=== PATIENT | female | born 1990 | race Caucasian/White ===

== ENCOUNTER 2022-09-12 07:58 | Outpatient (CLI) | payer OTHER, SELFPAY ==
--- NOTE | 2022-09-12 08:15 | CRLHL7_ITS ---
For Patients: As a result of the Cures Act, medical imaging exams and procedure reports are released immediately into your electronic medical record. You may view this report before your referring provider. If you have questions, please contact your health care provider. INDICATION: First trimester scan, establish dates. COMPARISON: None. TECHNIQUE: Real-time garcia-scale imaging of the pelvis was performed. FINDINGS: Sonographic imaging demonstrates a single living intrauterine gestation. The embryo demonstrates a regular cardiac rate measuring 176 beats per minute. The embryo`s crown-rump length measurement of 2.4 cm corresponds to a gestational age of 9 weeks 1 day with a sonographic due date of 04/16/2023. There is a normal-appearing yolk sac. There are no gross abnormalities noted within the embryo at this early state of development. The gestational sac has a normal appearance. There is no evidence of a perigestational hemorrhage. The amount of fluid within the sac appears appropriate for gestational age. The cervix is closed. The myometrium appears normal. The ovaries are of normal size. Corpus luteal cyst left ovary. There are no suspicious fluid collections noted in the cul-de-sac. IMPRESSION: Normal first trimester OB ultrasound exam. Gestational age calculated at 9 weeks 1 day with a sonographic due date of 04/16/2023. Dictated by Zurdo Mantilla MD @ 09/12/2022 10:12:30 AM (Electronically Signed)
== END 2022-09-12 07:59 | disposition home or self-care (01) ==
LOC: US 07:59
PROVIDERS: Visit Provider Advanced Practice Midwife
DX: Z34.91 Encounter for supervision of normal pregnancy, unspecified, first trimester (principal); Z3A.09 9 weeks gestation of pregnancy
CPT/HCPCS: 76801

== ENCOUNTER 2022-09-12 09:57 | Outpatient (CLI) | payer OTHER, SELFPAY ==
[2022-09-12 15:56] LABS: Hepatitis B Surface Antigen* Negative (Negative)
[2022-09-12 16:01] LABS: HIV 1/2/P24 Combo Screen* Negative (Negative)
[2022-09-12 16:13] LABS: Hepatitis C Virus Antibody* Negative (Negative)
[2022-09-12 16:20] LABS: Chlamydia DNA Amplified* NOT DETECTED (No Detected); GC DNA Amplified* NOT DETECTED (No Detected)
[2022-09-13 23:55] LABS: Rapid Plasma Reagin (RPR) Non Reactive (Non Reactive)
[2022-09-14 04:53] LABS: Rubella Antibody IgG 41.9 IU/mL
== END 2022-09-12 09:58 | disposition home or self-care (01) ==
PROVIDERS: Visit Provider Advanced Practice Midwife
DX: Z34.91 Encounter for supervision of normal pregnancy, unspecified, first trimester (principal); Z3A.09 9 weeks gestation of pregnancy
CPT/HCPCS: 86592; 86703; 86762; 86787; 86803; 86850; 86900; 86901; 87086; 87340; 87491; 87591

== ENCOUNTER 2022-11-25 08:16 | Outpatient (CLI) | payer OTHER, SELFPAY ==
--- NOTE | 2022-11-25 08:15 | CRLHL7_ITS ---
For Patients: As a result of the Century Cures Act, medical imaging exams and procedure reports are released immediately into your electronic medical record. You may view this report before your referring provider. If you have questions, please contact your health care provider. INDICATION: Evaluate anatomy. COMPARISON: 09/12/2022 TECHNIQUE: Real time garcia scale imaging of the fetus was performed as well as color Doppler analysis of the umbilical vessels. FINDINGS: Sonographic imaging demonstrates a single living intrauterine gestation. Fetus demonstrates a regular cardiac rate of 144 beats per minute. Fetus has a variable position. The placenta lies anteriorly without evidence of placenta previa. The edge of the placenta is located 3.9 cm from the internal cervical os. Amniotic fluid volume appears normal. Single deepest vertical pocket: 5.7 cm. The cervix is closed and measures 5.3 cm in length. The composite ultrasound gestational age is calculated at 20 weeks 5 days with an estimated sonographic due date of 04/09/2023. The estimated weight is 393 grams which lies at the 93rd %. The following biometric measurements were obtained: Biparietal diameter: 4.8 cm/20 weeks 4 days 76th% Head circumference: 18.0 cm/20 weeks 3 days 64th% Abdominal circumference: 16.3 cm/21 weeks 3 days 85th% Femur length: 3.4 cm/20 weeks 5 days 69th% The HC/AC ratio measures: 1.11 range (1.06-1.25) On anatomic survey, there is a normal appearance of the cerebral ventricles, cavum septi pellucidi, cisterna magna and cerebellum. The nose, lips, and facial profile appear normal. The cervical, thoracic and lumbar spine are well visualized and appear normal. There is a normal four-chamber heart view and the left and right ventricular outflow tracts appear normal. The diaphragm and stomach appear normal. The kidneys and bladder also appear normal. There is a normal three-vessel cord and cord insertion site. The four extremities appear normal. IMPRESSION: Normal OB ultrasound exam with concordance of clinical and sonographic dating. No intrinsic abnormalities noted on anatomic survey. Dictated by Zurdo Mantilla MD @ 11/25/2022 9:46:36 AM (Electronically Signed)
== END 2022-11-25 08:17 | disposition home or self-care (01) ==
LOC: US 08:17
PROVIDERS: Visit Provider Advanced Practice Midwife
DX: Z34.92 Encounter for supervision of normal pregnancy, unspecified, second trimester (principal); Z3A.20 20 weeks gestation of pregnancy
CPT/HCPCS: 76805

== ENCOUNTER 2023-02-24 13:08 | Outpatient (CLI) | payer OTHER, SELFPAY ==
--- NOTE | 2023-02-24 13:00 | CRLHL7_ITS ---
For Patients: As a result of the Century Cures Act, medical imaging exams and procedure reports are released immediately into your electronic medical record. You may view this report before your referring provider. If you have questions, please contact your health care provider. INDICATION: Gestational diabetes, preeclampsia COMPARISON: 02/18/2023 TECHNIQUE: Real time garcia scale imaging of the fetus was performed. Without non-stress testing. FINDINGS: Sonographic imaging demonstrates a single living intrauterine gestation. Fetus demonstrates a regular cardiac rate of 132 beats per minute. Fetus has a colin breech position. The amniotic fluid volume appears increased and there is a single deepest pocket measurement of 7.6 cm. MEGAN 27.6 cm. The fetus was active and demonstrated normal breathing movements. There was normal flexion and extension of the trunk and extremities. IMPRESSION: Normal biophysical profile score of 8 out of 8. Polyhydramnios. Dictated by Zurdo Mantilla MD @ 02/24/2023 2:18:55 PM (Electronically Signed)
== END 2023-02-24 13:09 | disposition home or self-care (01) ==
LOC: US 13:08
PROVIDERS: Visit Provider Obstetrics & Gynecology
DX: O14.93 Unspecified pre-eclampsia, third trimester (principal); O24.419 Gestational diabetes mellitus in pregnancy, unspecified control
CPT/HCPCS: 76819

== ENCOUNTER 2023-02-27 09:00 | Outpatient (CLI) | payer OTHER, SELFPAY | END 2023-02-27 09:01 | disposition home or self-care (01) | LOC: NFLDREF 03-02 08:45 | PROVIDERS: Visit Provider Obstetrics & Gynecology | DX: O14.93 Unspecified pre-eclampsia, third trimester (principal); Z3A.33 33 weeks gestation of pregnancy | CPT/HCPCS: 82565; 82570; 84156; 84450; 84460; 84520; 84550 ==

== ENCOUNTER 2023-03-02 07:13 | Outpatient (CLI) | payer OTHER, SELFPAY ==
--- NOTE | 2023-03-02 07:15 | CRLHL7_ITS ---
For Patients: As a result of the Century Cures Act, medical imaging exams and procedure reports are released immediately into your electronic medical record. You may view this report before your referring provider. If you have questions, please contact your health care provider. INDICATION: 33 year-old female. Gestational diabetes mellitus. COMPARISON: February 24, 2023. TECHNIQUE: Real time garcia scale imaging of the fetus was performed. Without non-stress testing. FINDINGS: Sonographic imaging demonstrates a single living intrauterine gestation. Fetus demonstrates a regular cardiac rate of 152 beats per minute. Fetus has a vertex orientation with spine to the maternal left side. The amniotic fluid volume appears normal and there is a single deepest pocket measurement of 4.3 cm. The fetus was active. However breathing movements were not observed during the time course of the study. There was normal flexion and extension of the trunk and extremities. IMPRESSION: Biophysical profile score of 6 out of 8. Dictated by Zana Harper MD @ 03/02/2023 8:43:43 AM (Electronically Signed)
== END 2023-03-02 07:14 | disposition home or self-care (01) ==
LOC: US 07:14
PROVIDERS: Visit Provider Obstetrics & Gynecology
DX: O24.419 Gestational diabetes mellitus in pregnancy, unspecified control (principal)
CPT/HCPCS: 76819

== ENCOUNTER 2023-03-06 09:05 | Outpatient (CLI) | payer OTHER, SELFPAY | END 2023-03-06 09:06 | disposition home or self-care (01) | LOC: NFLDREF 11:15 | PROVIDERS: Visit Provider Obstetrics & Gynecology | DX: O09.299 Supervision of pregnancy with other poor reproductive or obstetric history, unspecified trimester (principal); O14.93 Unspecified pre-eclampsia, third trimester; Z3A.34 34 weeks gestation of pregnancy | CPT/HCPCS: 82565; 82570; 84156; 84450; 84460; 84520; 84550 ==

== ENCOUNTER 2023-03-10 09:09 | Outpatient (CLI) | payer OTHER, SELFPAY ==
--- NOTE | 2023-03-10 09:15 | CRLHL7_ITS ---
For Patients: As a result of the Century Cures Act, medical imaging exams and procedure reports are released immediately into your electronic medical record. You may view this report before your referring provider. If you have questions, please contact your health care provider. INDICATION: pre-eclampsia COMPARISON: 03/02/2023 TECHNIQUE: Real time garcia scale imaging of the fetus was performed. Without non-stress testing. FINDINGS: Sonographic imaging demonstrates a single living intrauterine gestation. Fetus demonstrates a regular cardiac rate of 129 beats per minute. Fetus has a colin breech position. The amniotic fluid volume appears slightly increased and there is a single deepest pocket measurement of 9.2 cm. MEGAN 27.3 cm. The fetus was active and demonstrated normal breathing movements. There was normal flexion and extension of the trunk and extremities. IMPRESSION: Normal biophysical profile score of 8 out of 8. Amniotic fluid slightly increased with MEGAN 27.3 cm. Dictated by Zurdo Mantilla MD @ 03/10/2023 10:29:47 AM (Electronically Signed)
== END 2023-03-10 09:10 | disposition home or self-care (01) ==
PROVIDERS: Visit Provider Obstetrics & Gynecology
DX: O14.90 Unspecified pre-eclampsia, unspecified trimester (principal)
CPT/HCPCS: 76819

== ENCOUNTER 2023-03-13 09:42 | Outpatient (CLI) | payer OTHER, SELFPAY | END 2023-03-13 09:43 | disposition home or self-care (01) | PROVIDERS: Visit Provider Obstetrics & Gynecology | DX: O14.93 Unspecified pre-eclampsia, third trimester (principal); Z3A.35 35 weeks gestation of pregnancy | CPT/HCPCS: 82565; 82570; 84156; 84450; 84460; 84520; 84550 ==

== ENCOUNTER 2023-03-13 11:36 | Outpatient (CLI) | payer OTHER, SELFPAY ==
[2023-03-13 11:54] VITALS: BP 113/75; PULSE 80; RESP 18; TEMP 36.9
--- NOTE | 2023-03-13 12:50 | PC.OBNST ---
NST Note NST Note Start: 03/13/23 12:10 Freq: ONCE Status: Active Protocol: Document 03/13/23 12:47 AAP (Rec: 03/13/23 12:49 AAP [id number]) NST Note 2 Para (# of births) 1 EDC 04/14/23 Gestational Age In Weeks & Days 35 Weeks & 3 Days High Risk Factors High Blood Pressure - Gestational,Diabetes - Gestational Insulin Patient Presented with Complaint(s) of Other Other Complaints Pt sent to Center from clinic due to FHR deceleration noted in clinic. Reactive Yes Appropriate for Gestational Age Yes LINWOOD Paez, RN Date 03/13/23 Reactive Yes Appropriate for Gestational Age Yes LINWOOD De La Garza RNC Date 03/13/23 OB NST charge Yes Complete NST Note via Write Note Yes The provider's electronic signature indicates the NST is reactive/appropriate for gestational age. *Note to provider: If an addendum is required, open the patient's chart and click on the note under the Nurse/Allied Health tab.
== END 2023-03-13 12:50 | disposition home or self-care (01) ==
LOC: OB OUT 11:39 → OB 11:42
PROVIDERS: Visit Provider Obstetrics & Gynecology
DX: O24.419 Gestational diabetes mellitus in pregnancy, unspecified control (principal); Z3A.35 35 weeks gestation of pregnancy
CPT/HCPCS: 59025; 99213

== ENCOUNTER 2023-03-16 08:58 | Outpatient (CLI) | payer OTHER, SELFPAY ==
[2023-03-17 11:50] LABS: Strep B DNA Probe NEGATIVE (Negative)
[2023-03-17 11:56] LABS: Strep B Pen/Amox Allergy No
== END 2023-03-16 08:59 | disposition home or self-care (01) ==
PROVIDERS: Visit Provider Obstetrics & Gynecology
DX: O24.419 Gestational diabetes mellitus in pregnancy, unspecified control (principal); Z3A.36 36 weeks gestation of pregnancy
CPT/HCPCS: 76816; 76819; 87081; 87653

== ENCOUNTER 2023-03-20 10:22 | Outpatient (CLI) | payer OTHER, SELFPAY | END 2023-03-20 10:23 | disposition home or self-care (01) | LOC: NFLDREF 03-22 06:54 | PROVIDERS: Visit Provider Obstetrics & Gynecology | DX: O14.93 Unspecified pre-eclampsia, third trimester (principal); Z3A.36 36 weeks gestation of pregnancy | CPT/HCPCS: 82565; 82570; 84156; 84450; 84460; 84520; 84550 ==

== ENCOUNTER 2023-03-21 12:05 | Outpatient (CLI) | payer OTHER, SELFPAY ==
[2023-03-21] MEDS: BETAMETHASONE SOD PHOS/ACETATE 6 MG/ML ML 12 MG IM (12:23)
== END 2023-03-21 12:28 | disposition home or self-care (01) ==
LOC: OB CLI 12:09 → OB 12:22 → OB CLI 12:23
PROVIDERS: Visit Provider Obstetrics & Gynecology
DX: O14.93 Unspecified pre-eclampsia, third trimester (principal); Z3A.36 36 weeks gestation of pregnancy
CPT/HCPCS: 99211; J0702

== ENCOUNTER 2023-03-23 16:05 | Inpatient (IN) | payer OTHER, SELFPAY ==
[2023-03-23 16:24] VITALS: BP 139/83; PULSE 80
[2023-03-23 16:27] VITALS: BMI 31.6
[2023-03-23] MEDS: TERBUTALINE 1 MG/ML INJ 0.25 MG SUBCUT (17:27)
--- NOTE | 2023-03-23 17:29 | P.PCN_ITS ---
Procedure Note Time Seen by Provider: 17:29 Date Seen: 03/23/23 Date of procedure: 03/23/23 Will [facility] bill your pro fee for this procedure?: Yes Pre-op diagnosis: 36 6/7 wks, back down transverse Procedure: External cephalic version Procedure Description: A nonstress test was performed, which was reactive and reassuring. A limited OB ultrasound was performed at the bedside to determine position. Fetus was found to be in a back down transverse position, with the head in the maternal left upper quadrant and the breech in the maternal right lower quadrant. Informed consent was obtained for external cephalic version. Terbutaline 0.25 mg was administered to the patient subcutaneously. External cephalic version was attempted. I applied upward pressure to the breech, Dr. Hernandez applied pressure to the vertex, and we attempted to gently coax the fetus in a backward roll in a clockwise direction. This attempt was unsuccessful. A 2nd attempt was made to coax the in a backwards roll in a clockwise direction, as I applied pressure to the breech and Dr. Hernandez applied pressure to the vertex. This attempt was successful. heart tones were noted to be normal between and after the attempts. The patient tolerated the procedure well. monitoring after the procedure was continued to be reassuring. Anesthesia: none Surgeon: Evelia Cardoza MD Manufacturer'S Representative: Kandis Hernandez Condition: stable Disposition: other (Proceed with induction of labor for preeclampsia without severe features)
[2023-03-23 17:41] LABS: Basophils Absolute Auto 0.02 K/uL (0.00-0.30); Basophils Percent Auto 0.2 % (0.0-3.0); Eosinophils Absolute Auto 0.07 K/uL (0.00-0.50); Eosinophils Percent Auto 0.8 % (0.0-7.0); Hematocrit 35.5 % (33.0-51.0); Immature Granulocytes Abs Auto 0.11 K/uL (0.00-0.30); Immature Granulocytes Pct Auto 1.2 %; Lymphocytes Absolute Auto 1.96 K/uL (0.90-2.90); Lymphocytes Percent Auto 21.4 % (20-44); Mean Corpuscular HGB Conc 34 gm/dL (32-36); Mean Corpuscular Hemoglobin 31 pg (26-34); Mean Corpuscular Volume 92 fL (80-100); Monocytes Percent Auto 7.3 % (0.0-11.0); Neutrophils Absolute Auto 6.34 K/uL (1.7-7.0); Neutrophils Percent Auto 69.1 % (42.0-72.0); Platelet Count* 223 K/uL (140-440); Red Blood Count 3.88 m/uL (4.00-5.20); White Blood Count* 9.17 K/uL (4.50-11.00)
[2023-03-23 17:44] LABS: Slide Review Reflex No
--- NOTE | 2023-03-23 17:49 | P.LDBA_ITS ---
Subjective History of Present Illness Time Seen by Provider: 17:49 Date Seen: 03/23/23 Narrative: Patient is being admitted to Labor and Delivery for induction of labor with cervical ripening for preeclampsia without severe features. She is a 33 year old at 36 6/7 weeks gestation. Her full history and physical was dictated by Dr. Cardoza on 03/16/2023. Please see this for details. TEZ 04/14/23 by LMP Spouse: Iain. Daughter: Kim Rae. Baby: [place] Gender 1. Preeclampsia w/o severe features dx: 02/18/23 by elevated BPs more than 4 hours apart, 24 hour urine 576mg * Twice weekly testing: NSTs Fridays (with labs), BPPs Tuesdays * Growth US q 4 weeks * Weekly HELLP labs (Fridays) * IOL by 37 weeks if no severe features and controlled GDMA2 * History of Mild preeclampsia in her first . IOL at 37wks. Utilizing baby ASA. * 02/18/23 32wks: Transverse w/ head on maternal R, SDP: 9.7cm. MEGAN 29.4. BPP 8/8. EFW: 2120 g, 4#11oz., 71%. BPD > 97%, HC 91%, AC 77%, FL 21%. * 02/18/23: hgb 11.9, plts 208, BUN 6, Creat 0.4, AST 25, ALT 16. * 02/24/23: BPP 8/8, colin breech, MEGAN 27.6, SDP 7.6 * 02/27/23: hgb 12.1, plts 196, BUN 9, creta 0.5, AST 16, ALT 15. Urine P/C: 0.10. * 03/02/23: Vtx, SDP: 4.3cm, BPP 6/8 (-2 for lack for respiratory effort) reactive NST. * Induction of labor scheduled for 37 weeks gestation: 03/23/23. * BMTZ 03/20/23 and 03/21/23 2.GDMA2 - Endocrinology ([facility], ) started on insulin on 02/16/23 - As of 02/24, increased to NPH 12 units at night, HumaLOG KwikPen 3 units before each meal. -02/27/2023: NPH: 12 units q.h.s., Humalog, KwikPen 3u prior to each meal. -03/01/2023: NPH: 15u QHS, Humalog 3u prior to each meal - 03/20/23: NPH: 26u qhS. Reu prior to Breakfast. 5u prior to Lunch and dinner - Insulin after BMTZ for 03/20-03/23: NPH 30u QHS. Reu prior to breakfast, 7u prior to lunch and dinner. 3. Mild polyhydramnios 02/18/23: - MEGAN: 29.4cm, SDP: 9.7 - Monitoring as above OB - Problem Based A/P Additional Plan (1) Pre-eclampsia during in third trimester, antepartum: Status: Acute (2) Gestational diabetes: Problem details: A 2 Status: Acute (3) malpresentation: Status: Acute Plan External cephalic version performed after discussion of options. See procedure note. Delivery/Labor/Induction Plan Plan: induction Induction method: per misoprostol protocol (Vaginal) OB Exam Physical Exam Vital signs: Pulse BP 80 139/83 03/23/23 16:24 03/23/23 16:24 Detailed Labor and Delivery Exam Patient Gravid: Yes Dilation (cm): 0 Effacement (%): 50 Cervix position: posterior Consistency: firm Tachysystole: No Fetus (Single) Station: -3 Position: Left Occiput Transverse Amniotic Membrane Status: intact Heart Rate Baseline: 125 Monitor Accelerations: Present Monitor Decelerations: None Detention Variability: Moderate (6-25)
[2023-03-23] MEDS: miSOPROStoL 25 MCG/0.25 TABLET VAGINAL ×2 (18:52→21:49)
[2023-03-23 19:30] VITALS: BP 117/64; PULSE 93; RESP 15; TEMP 36.6
[2023-03-23 19:31] VITALS: PULSE 102; O2SAT 97
[2023-03-23] MEDS: INSULIN NPH 100 UNIT/ML 30 UNIT SUBCUT (19:55)
[2023-03-23 21:49] VITALS: BP 119/59; PULSE 76
[2023-03-24] VITALS (56 sets, daily range): BP systolic 119–150; BP diastolic 60–100; PULSE 62–109; RESP 16–18; TEMP 36.6–37.3; O2SAT 94–100
[2023-03-24] MEDS: miSOPROStoL 25 MCG/0.25 TABLET VAGINAL ×2 (03:37→09:17)
--- NOTE | 2023-03-24 12:24 | P.OBPN_ITS ---
Subjective Time Seen by Provider: 12:30 Date Seen: 03/24/23 Narrative: Lydia is a 33 yo L1Y7-7-7-3 woman at 37 0/7 weeks' here for IOL for preeclampsia without severe features. OB Problem List: 1. Preeclampsia w/o severe features dx: 02/18/23 by elevated BPs more than 4 hours apart, 24 hour urine 576mg * Twice weekly testing: NSTs Fridays (with labs), BPPs Tuesdays * Growth US q 4 weeks * Weekly HELLP labs (Fridays) * IOL by 37 weeks if no severe features and controlled GDMA2 * History of Mild preeclampsia in her first . IOL at 37wks. Utilizing baby ASA. * 02/18/23 32wks: Transverse w/ head on maternal R, SDP: 9.7cm. MEGAN 29.4. BPP 8/8. EFW: 2120 g, 4#11oz., 71%. BPD > 97%, HC 91%, AC 77%, FL 21%. * 02/18/23: hgb 11.9, plts 208, BUN 6, Creat 0.4, AST 25, ALT 16. * 02/24/23: BPP 8/8, colin breech, MEGAN 27.6, SDP 7.6 * 02/27/23: hgb 12.1, plts 196, BUN 9, creta 0.5, AST 16, ALT 15. Urine P/C: 0.10. * 03/02/23: Vtx, SDP: 4.3cm, BPP 6/8 (-2 for lack for respiratory effort) reactive NST. * Induction of labor scheduled for 37 weeks gestation: 03/23/23. * BMTZ 03/20/23 and 03/21/23 2.GDMA2 - Endocrinology ([facility], ) started on insulin on 02/16/23 - As of 02/24, increased to NPH 12 units at night, HumaLOG KwikPen 3 units before each meal. -02/27/2023: NPH: 12 units q.h.s., Humalog, KwikPen 3u prior to each meal. -03/01/2023: NPH: 15u QHS, Humalog 3u prior to each meal - 03/20/23: NPH: 26u qhS. Reu prior to Breakfast. 5u prior to Lunch and dinner - Insulin after BMTZ for 03/20-03/23: NPH 30u QHS. Reu prior to breakfast, 7u prior to lunch and dinner. 3. Mild polyhydramnios 02/18/23: - MEGAN: 29.4cm, SDP: 9.7 - Monitoring as above Lydia is not feeling strong contractions. She is overall doing well. Objective Vital Signs: Last Vital Signs Temp 98 F 03/24/23 09:26 Pulse 82 03/24/23 09:26 Resp 16 03/24/23 09:26 BP 125/83 03/24/23 09:26 Pulse Ox 97 03/23/23 19:31 Pelvic Exam Dilation (cm): 3 Effacement (%): 80 Station: -1 Comments: SROM for clear fluid Contractions Monitor mode: External Contraction Frequency: Q 1-2 minutes Contraction pattern: Regular Assessment Station: -3 Heart Rate Baseline: 125 Monitor Accelerations: Present Monitor Decelerations: None Tracing Comments: Reassuring status. GBS negative. Labor Progress: Cervix now favorable. Discontinue cervical ripening. Augmentation with pitocin. Maternal Status: BPs normal or mildly elevated thus far. Plan Plan: Augmentation with pitocin. Continue EFM.
[2023-03-24] MEDS: LACTATED RINGERS 1000 ML 1,000 ML 1200 ML IV (13:40)
[2023-03-24] MEDS: ROPIVACAINE 0.2% 100 ml 100 ML 12 MG EPIDURAL (14:23)
[2023-03-24] MEDS: LACTATED RINGERS 1000 ML 1,000 ML 125 ML IV (14:27)
--- NOTE | 2023-03-24 14:46 | P.ANBPRC_ITS ---
[facility] Medical History (Updated 03/23/23 @ 17:54 by Evelia Cardoza MD) Encounter for supervision of high risk in third trimester, antepartum ?O09.93 - Supervision of high risk , unspecified, third trimester (ICD-10) Thinning hair ?L65.9 - Nonscarring hair loss, unspecified (ICD-10) Seborrheic dermatitis of scalp ?L21.9 - Seborrheic dermatitis, unspecified (ICD-10) Pre-eclampsia ?O14.90 - Unspecified pre-eclampsia, unspecified trimester (ICD-10) Obesity ?E66.9 - Obesity, unspecified (ICD-10) Normal spontaneous vaginal delivery ?O80 - Encounter for full-term uncomplicated delivery (ICD-10) Surgical History S/P tendon repair ?Z98.890 - Other specified postprocedural states (ICD-10) Family History Mother High blood pressure Hyperthyroidism Social History What is your current living situation?: I presently have a place to live Problems where you live: no known problems In the past 12 months, utilities in danger of being shut off: no In the past 12 mos, have been you worried that your food would run out before you had money to buy more?: never true In the past 12 mos, the food you bought just didn't last and you didn't have money to buy more?: never true Smoking Status: Never smoker How often does anyone, including family, friends and others, physically hurt you : never How often does anyone, including family, friends and others, insult or talk down to you: never How often does anyone, including family, friends and others, threaten you with harm: never How often does anyone, including family, friends and others, scream or curse at you: never Little interest or pleasure in doing things: not at all Feeling down, depressed, or hopeless: not at all Meds Home Medications and Allergies Home Medications Medication Instructions Recorded Confirmed Type cholecalciferol (vitamin D3) 50 50 mcg PO DAILY 03/20/22 03/23/23 History mcg (2,000 unit) tablet prenat.vits,jacy,qct-xxqa-vxtzc 1 tab PO QDAY 03/20/22 03/23/23 History ascorbic acid (vitamin C) 1,000 mg 500 mg PO BID 09/12/22 03/23/23 History tablet calcium carbonate 600 mg calcium 600 mg PO QDAY 09/12/22 03/23/23 History (1,500 mg) tablet (Calcium) omega-3 fatty acids-fish oil 360 1 cap PO QDAY 09/12/22 03/23/23 History mg-1,200 mg capsule (Fish Oil) acetone (urine) test (Ketostix #25 ea 02/18/23 03/16/23 History strips) insulin NPH isoph U-100 human 100 30 unit subcut HS 02/18/23 03/23/23 History unit/mL (3 mL) subcutaneous pen (Humulin N NPH U-100 Insulin KwikPen) insulin lispro 100 unit/mL 5 unit subcut TIDWMEAL 02/18/23 03/23/23 History subcutaneous pen pen needle, diabetic 32 gauge x #1,200 ea 02/18/23 03/16/23 History (Pentips) Allergies Allergy/AdvReac Type Severity Reaction Status Date / Time No Known Allergies Allergy Verified 03/23/23 16:34 Results Labs Labs: Laboratory Results - last 24 hr 03/23/23 17:34 WBC 9.17 RBC 3.88 L Hgb 12.0 Hct 35.5 MCV 92 MCH 31 MCHC 34 RDW Coeff of Ru 14.0 Plt Count 223 Neut % (Auto) 69.1 Lymph % (Auto) 21.4 Jewell % (Auto) 7.3 Eos % (Auto) 0.8 Baso % (Auto) 0.2 Neut # (Auto) 6.34 Lymph # (Auto) 1.96 Jewell # (Auto) 0.70 Eos # (Auto) 0.07 Baso # (Auto) 0.02 Abs Immat Gran (auto) 0.11 Imm/Tot Granulo (auto) 1.2 Blood Type A Positive Antibody Screen NEGATIVE Vital Signs Vital Signs: Last Vital Signs Temp 98.3 F 03/24/23 14:11 Pulse 62 03/24/23 14:33 Resp 18 07/11/23 14:11 BP 131/65 03/24/23 14:33 Pulse Ox 98 03/24/23 14:36 Weight: 91.62 kg Height: 170.18 cm Anesthesia Procedures Epidural Insertion Patient Location: OB Start Time: 13:45 Stop Time: 14:45 Start Date: 03/24/23 Stop Date: 03/24/23 Reason for Block: procedure for pain Patient Position: sitting Performed By: Trista Gtuierrez Preanesthetic Checklist: IV checked, risks and benefits discussed, monitors and equipment checked, timeout performed and anesthesia consent Prep: chlorhexidine gluconate Monitoring: blood pressure monitoring, continuous pulse oximetry and heart rate Approach: midline Vertebral Space: lumbar (1-5) Epidural Technique: DALIA saline Needle Type: Tuohy needle Injection Technique: continuous catheter Needle gauge: 17 Needle Length (cm): 10 cm Needle Insertion Depth (cm): 6 Catheter Gauge: 19 Catheter Type: multi-orifice Catheter at skin depth (cm): 12 Test Dose Result: negative and lidocaine 1.5% with epinephrine 1 to 200,000
[2023-03-24] MEDS: OXYTOCIN 30 unit/500 ML in NS 30 UNIT/500 ML BAG IVPB (15:10)
[2023-03-24] MEDS: PHENYLEPHRINE 100 MCG/ML SYRINGE IVP (15:19)
[2023-03-24] MEDS: OXYTOCIN 30 unit/500 ML in NS 30 UNIT/500 ML BAG 300 UNIT IVPB (16:01)
--- NOTE | 2023-03-24 16:17 | W.PM.VAGD1_ITS ---
Procedure Procedure Done: [facility] Procedure Details: The patient is a 33 year-old G 2 P 1-0-0-1 woman admitted on 03/23/2023 at 36 Weeks, 6 Days gestation for cervical ripening prior to anticipated induction of labor for indication of preeclampsia without severe features.? Cervical exam on admission was closed/50 % effaced/-3 station with membranes intact in vertex presentation.? heart rate demonstrated baseline 125 bpm with moderate variability, positive accelerations, no decelerations; a category 1 tracing.? She had 4 doses of vaginal Cytotec for cervical ripening. SROM occurred at 12:31 p.m. on 03/24/2023 with clear fluid. ? Labor Analgesia:? Epidural ? Pitocin:? Yes ? Complete:? 3:52 p.m. ? Pushing:? 3:54 p.m. ? She did have two deep variable decelerations late in her transitional labor, which resolved. heart tones during second stage were reassuring. ? At 3:59 p.m. a viable male delivered in vertex PIPER presentation over intact perineum via spontaneous vaginal delivery.? Infant was placed on maternal abdomen.? Cord was clamped and cut after a 60 second delay.? Nose and mouth were bulb suctioned.? Infant weight pending.? 8 at 1 minute and 9 at 5 minutes.? Shoulder dystocia: No.? Nuchal cord: No. ? Placenta delivered spontaneously and complete at 4:03 p.m. with a 3 vessel cord. ? Mother and infant were stable after delivery. ? Lacerations:? Shallow periurethral lacerations were noted, which did not require repair. No perineal lacerations. ? Blood loss: 100 mL. Blood loss measurement type: QBL ? Sponge and needles counts are correct. Events: GDMA2, Pre-Eclampsia, Labor Induction, Labor Augmentation and Polyhydramnios Intrapartal Events: Labor Augmentation and Labor Induction Delivery augmentation: pitocin Delivery monitor: external FHT Route of delivery: Episiotomy description: None Laceration description: None Estimated blood loss (mL): 100 Anesthesia type: Epidural Disposition: no change [place] Infant Infant Gender: Male
[2023-03-24] MEDS: IBUPROFEN 600 MG TABLET PO (19:07)
[2023-03-24] MEDS: ACETAMINOPHEN 500 MG TABLET 1000 MG PO (22:48)
[2023-03-25] VITALS (7 sets, daily range): BP systolic 130–143; BP diastolic 85–95; PULSE 70–90; RESP 15–16; TEMP 36.4–36.7; O2SAT 96–98
[2023-03-25] MEDS: IBUPROFEN 600 MG TABLET PO ×4 (01:03→22:19)
[2023-03-25] MEDS: ACETAMINOPHEN 500 MG TABLET 1000 MG PO ×3 (04:42→19:51)
[2023-03-25 07:28] LABS: Hemoglobin* 11.9 gm/dL (12.0-16.0)
[2023-03-25] MEDS: DOCUSATE SODIUM 100 MG CAPSULE PO (08:10)
--- NOTE | 2023-03-25 08:32 | PM.OBPNVD1 ---
OB - PN:Subj Subjective Time Seen by Provider: 08:32 Date Seen: 03/25/23 Interval history: John is a 33 y.o. who was admitted to L & D for IOL for preeclampsia. She had an uncomplicated NVD. Patient comments OB post-: no complaints, pain well controlled, tolerating diet and flatus present [place] infant status: doing well Narrative: The patient feels well. The pain is well controlled with current medications. She has no new complaints. She is breast feeding and reports things are going well.? the patient has done well.? Vitals have been stable.? She has remained afebrile.? Has a good appetite, is tolerating a general diet. She is voiding without difficulty.? She is passing gas and has not had a bowel movement.? She is ambulating and denies any dizziness.? Has Small amount of rubra lochia. She did have 2 silver dollar size clots this AM, but bleeding WNL and fundus firm per RN. She denies any headache, vision changes or epigastric pain. OB - PN: Obj Exam Physical Exam: Vital signs: Temp Pulse Resp BP Pulse Ox O2 Del Method 97.6 F 70 15 141/95 H 97 Room Air 03/25/23 05:00 03/25/23 05:00 03/25/23 05:00 03/25/23 05:00 03/25/23 05:00 03/25/23 05:00 Narrative: GENERAL APPEARANCE: normal affect, alert, no distress MOOD: appropriate HEENT: normocephalic, neck supple, full ROM CHEST: Symmetrical chest wall movement. Normal respiratory effort. Clear to auscultation HEART: regular rate and rhythm ABDOMEN: soft, non-tender. Uterine fundus is firm, at Umbilicus, Midline and is appropriate for the stage of recovery. Bowel sounds present. PERINEUM: deferred per pt request, at this time EXTREMITIES: normal and no edema OB - PN: Obj Data Labs Labs: Laboratory Results - last 24 hr 03/25/23 06:58 Hgb 11.9 L OB - PN: A/P Delivery Assessment and Plan (1) Pre-eclampsia during in third trimester, antepartum: Status: Resolved (2) Gestational diabetes: Problem details: A 2 Status: Inactive (3) malpresentation: Status: Resolved (4) Normal spontaneous vaginal delivery: Status: Acute Plan Plan: routine care Comments: G 2 P 2 status post NVD complicated by preeclampsia 1. Continue route PP cares 2. . May see if desired 3. Anticipate discharge home tomorrow 4. Preeclampsia -BP elevated this AM -will repeat preeclampsia labs -continue to monitor blood pressures, will consult if labs elevated or BP elevated again 5. Gestational diabetes. Blood sugar 120 this am -repeat fasting blood sugar tomorrow AM -Follow up at 6 week visit for repeat GTT
[2023-03-25 08:59] LABS: Hematocrit 36.9 % (33.0-51.0); Hemoglobin* 12.6 gm/dL (12.0-16.0); Mean Corpuscular HGB Conc 34 gm/dL (32-36); Mean Corpuscular Hemoglobin 31 pg (26-34); Mean Corpuscular Volume 91 fL (80-100); Platelet Count* 225 K/uL (140-440); Red Blood Count 4.05 m/uL (4.00-5.20); White Blood Count* 12.54 K/uL (4.50-11.00)
[2023-03-25 09:08] LABS: Slide Review Reflex No
[2023-03-25 09:21] LABS: Alanine Aminotransferase* 17 U/L (4-35); Aspartate Amino Transferase* 21 U/L (12-35); Blood Urea Nitrogen* 8 mg/dL (5-24); Creatinine* 0.5 mg/dL (0.5-1.5); Est. Creatinine Clearance* 157.08; Estimated Glomerular Filt Rate 128 ml/min
[2023-03-25] MEDS: NIFEdipine 30 MG TAB.ER.24 PO ×2 (11:40→21:08)
[2023-03-26 00:05] VITALS: BP 127/75; PULSE 71; RESP 15; TEMP 36.7; O2SAT 97
[2023-03-26] MEDS: ACETAMINOPHEN 500 MG TABLET 1000 MG PO ×2 (02:08→08:40)
[2023-03-26 04:46] VITALS: BP 116/73; RESP 17
[2023-03-26] MEDS: IBUPROFEN 600 MG TABLET PO (04:51)
--- NOTE | 2023-03-26 08:16 | P.DS_ITS ---
DS: Providers Provider Date Seen: 03/26/23 Date of admission: 03/23/23 16:05 Primary care physician: Not a Local Provider Admitting Clinician: Evelia Cardoza MD Attending Physician on discharge: Evelia Cardoza MD Date of Discharge: 03/26/23 DS: Diagnosis Discharge Diagnosis (1) care following vaginal delivery: Status: Acute (2) Lactating mother: Status: Acute (3) Pre-eclampsia affecting puerperium: Status: Acute Exam Narrative: Exam Narrative: GENERAL APPEARANCE:? normal affect, alert, no distress? MOOD:? appropriate? CHEST:? clear to auscultation and percussion? HEART:? regular rate and rhythm? ABDOMEN:? soft, non-tender the uterine fundus is 2 cm Below Umbilicus, Midline and is appropriate for the stage of recovery. ? PERINEUM:? mild edema of the perineum, the perineum is intact.? EXTREMITIES:? normal and no edema? Patient has no complaints? No active bleeding?? Doing well? She is requesting discharge home.? Const: Vital Signs, click to edit/add: Vital Signs - 24 hr 03/25/23 11:15 03/25/23 11:19 03/25/23 16:00 Temperature 97.9 F 98.0 F Pulse Rate [Pulse Oximeter] 90 83 Respiratory Rate 16 16 Blood Pressure [Le ft Arm] 141/93 H 142/94 H 143/85 H Pulse Oximetry 97 98 Oxygen Delivery Me thod Room Air Room Air 03/25/23 19:40 03/26/23 00:05 03/26/23 04:46 Temperature 98.1 F 98.1 F Pulse Rate [Pulse Oximeter] 71 71 Respiratory Rate 16 15 17 Blood Pressure [Le ft Arm] 138/88 127/75 116/73 Pulse Oximetry 96 97 Oxygen Delivery Me thod Room Air Room Air Documenting provider has reviewed patient's vital signs: yes OB - DS: Summary Hospital Course Hospital Course: Patient is a 33year old, G 2 now P 2? admitted on 03/24/23 at 37 Weeks, 0 Days gestation for induction of labor for Preeclampsia.? She had an uncomplicated vaginal delivery.? She delivered a viable male infant.? She is breast feeding and reports things are well.? the patient has done well.? Her pain is well controlled with current medications.? She has no new complaints.? Vitals have been stable. She has remained afebrile. She is voiding without difficulty. She is passing gas and has not had a bowel movement. She is ambulating and denies any dizziness. She is planning partner vasectomy and condoms until then for control.?She was started on BID Nifedipine yesterday and her blood pressures have been in normal range since. Will send her home on this medication. She dopes have a blood pressure cuff at home and will continue to monitor her blood pressures.? Peripartum Data delivery method: Vaginal Laceration description: None Episiotomy description: None [place] Gender: Male Discharge Plan: Home Status at Discharge Functional status at discharge: independent ambulation Overall status at discharge: patient is progressing back to baseline Time Spent with Patient Time attestation: Total time spent providing and/or coordinating discharge services: Discharge Plan Discharge Disposition: Home, Self-Care Date of Admission: 03/23/23 16:05 Attending Provider on Discharge: Kacie Wang Primary Care Provider: Provider,Not a Local Condition: Stable Anticipated Discharge Date/Time: 03/26/23 10:00 Discharge Medications: New docusate sodium 100 mg Capsule 100 mg PO DAILY Qty: 60 0RF Rx Instructions: Take 1-2 tablets daily as needed for constipation. ibuprofen 600 mg Tablet 600 mg PO Q6H PRNQty: 60 0RF nifedipine 30 mg Tablet Extended Release 24hr 30 mg PO BID Qty: 90 0RF Continued cholecalciferol (vitamin D3) 50 mcg (2,000 unit) tablet 50 mcg PO DAILY prenat.vits,jacy,nni-wtno-rqtmg Tablet 1 tab PO QDAY omega-3 fatty acids-fish oil [Fish Oil] 360-1,200 mg capsule 1 cap PO QDAY calcium carbonate [Calcium 600] 600 mg calcium (1,500 mg) tablet 600 mg PO QDAY ascorbic acid (vitamin C) 1,000 mg tablet 500 mg PO BID Discontinued insulin lispro 100 unit/mL insulin pen 5 unit subcut TIDWMEAL Patient Comments: 5 units in am, 7 units at lunch and 7 units at dinner Humulin N NPH Insulin KwikPen 100 unit/mL (3 mL) insulin pen 30 unit subcut HS Fergon 270 mg (27 mg iron) tablet 270 mg PO .MWF Qty: 60 1RF No Action (DME) Ketostix Strip See Rx Instructions .ROUTE .MEDSUPPLY Qty: 25 Rx Instructions: As directed (DME) pen needle, diabetic [Pentips] 32 gauge x 5/32 needle See Rx Instructions .ROUTE .MEDSUPPLY Qty: 1200 Patient Comments: [NO ORIGINAL SIG] Rx Instructions: As directed (DME) Test Strips Misc See Rx Instructions .MEDSUPPLY Qty: 100 3RF Rx Instructions: Test blood sugar 4 times daily. (DME) lancets Misc See Rx Instructions .MEDSUPPLY Qty: 100 3RF Rx Instructions: Test blood sugar 4 times daily. (DME) Blood Glucose Meter Misc See Rx Instructions .MEDSUPPLY Qty: 1 0RF Rx Instructions: As directed Discharge Orders: Discharge Order (Routine); Ordered 03/26/23 Ordered By: Kacie Wang Patient Education: OB Vaginal/Breast Feeding Additional Instructions: Discharge instructions were reviewed with the patient including signs and symptoms of infection and home going medications.? Lifting Restrictions: 20 pounds for 6? weeks? ?? Do not drive while taking narcotic pain meds.? Off Work or School for 6 weeks.? ?? Symptoms to report to doctor:? -Bleeding that saturates more than one pad per hour? -Passing clots larger than the size of a golf ball? -Pain not relieved by prescribed medication? -Fever above 100.4 degrees Fahrenheit? -A foul vaginal odor? -Difficulty in emotions, mood and functions? -Thoughts of hurting yourself and/or ? -Painful, reddened area in your breast? -Any drainage, redness or tenderness in your IV/epidural site? -Severe headache that doesn't improve after taking medications? -Changes in vision, including temporary loss of vision, blurred vision, and/or light sensitivity? -Upper abdominal pain (usually under ribs on the right side)? -Decrease in urination or painful, frequent urinating? -Chest pain? -Shortness of breath? -Tenderness or pain with redness and/swelling in the calf(s) of your leg? ?? Follow Up: 1. 1 week visit:? blood pressure check.? 2. 2-week visit: discuss feeding/care concerns, review bir th control options and screen for anxiety/depression.? 3. 6-week visit: for an annual exam and blood pressure.? ?? consultation services are available to all mothers and babies for the first year after delivery.? To make an appointment, please call [phone].? Activity Level: Activity as Tolerated Discharge Diet: Regular Follow Up Appointments: [facility] [Provider Group] Provider,Not a Local [Primary Care Provider] - Forms: MyHealth Info Instructions
[2023-03-26] MEDS: DOCUSATE SODIUM 100 MG CAPSULE PO (08:39)
[2023-03-26] MEDS: NIFEdipine 30 MG TAB.ER.24 PO (08:40)
[2023-03-26 08:45] VITALS: BP 141/85; PULSE 79; RESP 16; TEMP 36.5; O2SAT 97
== END 2023-03-26 11:14 | disposition home or self-care (01) | DRG 807 ==
PROVIDERS: Advanced Practice Midwife; Obstetrics & Gynecology; Admitting Provider Obstetrics & Gynecology; Visit Provider Obstetrics & Gynecology
DX: O14.04 Mild to moderate pre-eclampsia, complicating childbirth (principal); Z37.0 Single live birth; O24.424 Gestational diabetes mellitus in childbirth, insulin controlled; O32.2XX0 Maternal care for transverse and oblique lie, not applicable or unspecified; Z3A.36 36 weeks gestation of pregnancy
CPT/HCPCS: 1967; 36415; 59200; 59412; 82565; 84450; 84460; 84520; 85018; 85025; 85027; 86850; 86900; 86901; 88307; A9270; J2371; J2795; J3105; J7120; S0020

== ENCOUNTER 2023-05-07 08:36 | Outpatient (CLI) | payer OTHER, SELFPAY | END 2023-05-07 08:37 | disposition home or self-care (01) | LOC: NFLDREF 05-09 11:05 | PROVIDERS: Visit Provider Physician Assistant | DX: O24.419 Gestational diabetes mellitus in pregnancy, unspecified control (principal) | CPT/HCPCS: 82947; 82950 ==

== ENCOUNTER 2024-09-09 08:31 | Outpatient (CLI) | payer OTHER, SELFPAY | END 2024-09-09 08:32 | disposition home or self-care (01) | LOC: NFLDREF 09-14 23:09 | PROVIDERS: PCP Emergency Medicine; Referring Provider Emergency Medicine; Visit Provider Emergency Medicine | DX: Z86.32 Personal history of gestational diabetes (principal); Z13.220 Encounter for screening for lipoid disorders | CPT/HCPCS: 80061; 82947 ==